=== PATIENT | male | born 1985 | race Caucasian/White ===

== ENCOUNTER 2016-08-05 19:03 | Emergency (ER) | payer OTHER ==
[~2016-08-05] VITALS: Ht 175.3 cm; Wt 72.7 kg
[2016-08-05 19:04] VITALS: BP 139/99; PULSE 67; RESP 16; O2SAT 100
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
[2016-08-05] MEDS ORDERED: Ondansetron 8 mg ODT Tablet PO ONE (21:35)
[2016-08-05] MEDS ORDERED: oxyCODONE-Acetamin 5-325 mg Tablet PO ONE (21:35)
[2016-08-05 21:54] VITALS: BP 137/67; PULSE 52; RESP 16; O2SAT 98
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
[2016-08-05] MEDS ORDERED: CLIN-78 PO (23:39)
[2016-08-05] MEDS ORDERED: ONDA4TAB9 PO (23:39)
[2016-08-05] MEDS ORDERED: OXYC1TAB24 PO (23:39)
[2016-08-05] MEDS ORDERED: _oxyCODONE/APAP 5-325 mg Tablet PO PRN (23:50)
[2016-08-06 00:31] VITALS: BP 135/68; PULSE 73; RESP 16; O2SAT 97
== END 2016-08-06 00:32 | disposition home or self-care (01) ==
LOC: SED 19:03
DX: S02.19XA Other fracture of base of skull, initial encounter for closed fracture (principal); S02.40DA Maxillary fracture, left side, initial encounter for closed fracture; S02.32XA Fracture of orbital floor, left side, initial encounter for closed fracture; V47.5XXA Car driver injured in collision with fixed or stationary object in traffic accident, initial encounter; Y93.89 Activity, other specified; Y92.410 Unspecified street and highway as the place of occurrence of the external cause; Y99.8 Other external cause status; R04.0 Epistaxis; Z88.0 Allergy status to penicillin